=== PATIENT | female | born 1990 | race Caucasian/White ===

== ENCOUNTER 2023-11-17 02:48 | Inpatient (IN) | payer OTHER, SELFPAY ==
[2023-11-16 22:51] VITALS: BP 110/74
--- NOTE | 2023-11-16 23:29 | ED.GENMED ---
History of Present Illness
<BERNICE Johnson - Last Filed: 11/16/23 23:54>
General
Chief Complaint: Abdominal Symptoms
Source: patient and family
Exam Limitations: none
Time Seen by Provider: 11/16/23 23:14
Travel History
Have you had any contact with someone who has COVID-19?: No
Do you have any symptoms of coronavirus? Fever > 100 degrees, chills, cough, shortness of breath, sore throat, loss of taste or smell, muscle aches, or headache?: No
History of Present Illness
History of Present Illness:
32 year old female with no significant past medical hx who presents for 3 days of worsening diarrhea. Pt states she finished a 10 day course of Ceftin for a sinus infection 4 days ago. On that day, she had loose stools. The following day she
developed diarrhea which worsened the next day. 2 days ago she reports 11 episodes of diarrhea and yesterday she had 16 episodes. Stool is watery, fluffy, pink, with some bright red blood. She developed a fever of 100.8 today with chills. She has
some nausea, mild lower abdominal pain, an mild head ache. Denies vomiting. States she called her PCP yesterday who recommended BRAT diet and follow up on Friday. However, pt states diarrhea was severe and wanted to come in to the ER. Pt took a
probiotic today. Has not taken anything else for her symptoms. States she has been drinking lots of water. Denies cough, sore throat, chest pain, SOB, dysuria, hematuria. Denies recent travel or sick contacts. 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 No one at home with similar symptoms. Pt notes she was treated twice for sinus infection in the past, doxycycline in July and augmentin in May. Pt takes buspirone BID for anxiety. Pt began menses yesterday. Mother reports she
has a hx of IBS as a teenager. Also reports family hx of C. diff. Denies hx of IBD.
Review of Systems
<BERNICE Johnson - Last Filed: 11/16/23 23:54>
Review of Systems
Allergies reviewed?: Yes
All Other Systems: ROS reviewed and negative except as documented in HPI and ROS
Constitutional: Reports fever and chills
EENT: Reports no symptoms
Respiratory: Reports no symptoms
Cardiac: Reports no symptoms
ABD/GI: Reports nausea, diarrhea and bloody stools
: Reports no symptoms
Musculoskeletal: Reports no symptoms
Skin: Reports no symptoms
Neurological: Reports headache
Endocrine: Reports no symptoms
Hematologic/Lymphatic: Reports no symptoms
Psychiatric: Reports no symptoms
Phy Exam
<BERNICE Johnson - Last Filed: 11/16/23 23:54>
General Physical Exam
General Presentation: well appearing and no apparent distress
General age: appears stated age
General Skin: dry and feels hot
General Habitus: normal
General Mental: alert
General Hydration: appears well hydrated
Cardiovascular Exam
Cardiovascular Exam: no edema, no gallop, no murmur, normal peripheral pulses and tachycardia
Pulmonary Exam
Pulmonary Exam: lungs clear, no respiratory distress, no rales, no crackles, no rhonchi, no wheezing and no cough
Gastrointestinal Exam
Gastrointestinal Exam: normal bowel sounds, soft, no pulsatile mass and non distended
Palpation: left lower quadrant: Mild tenderness and right lower quadrant: Mild tenderness
Neurological Exam
Neurological Exam: alert and oriented x3
Skin Exam
Skin Exam: normal color and warm/dry
Psychiatric Exam
Psychiatric Exam: normal mood/affect
Course
<BERNICE Johnson - Last Filed: 11/16/23 23:54>
Orders/Labs/Results
Orders:
Orders
11/16/23 23:34
CDIFF [C difficile Antigen & Toxins] Urgent
KAYY Source: Feces/Stool
Specimen Description:
Date Specimen was Collected: 11/16/23
Time Specimen was Collected: 23:39
Stool Culture Urgent
KAYY Source: Feces/Stool
Specimen Description:
Date Specimen was Collected: 11/16/23
Time Specimen was Collected: 23:39
Test Result ONCE
11/16/23 23:37
CT Abd/pelvis W Iv Cont Urgent
Comment:
Reason For Exam: lower abd pain, bloody diarrhea x 3 days
0.9% Sodium Chloride 1000 ml [Nss] 1,000 ml IV BOLUS
11/16/23 23:48
Complete Blood Count/With Diff Urgent
Comprehensive Metabolic Panel Urgent
HCG, Serum Qualitative Screen Urgent
Lactic Acid Urgent
Abnormal Lab Results
11/16/23
23:48
Hgb 9.0 L g/dL
(12.0-16.0)
Hct 28.5 L %
(37.0-47.0)
MCV 67.2 L fL
(81.0-99.0)
MCH 21.2 L pg
(27.0-31.0)
MCHC 31.6 L g/dL
(33.0-37.0)
RDW 16.6 H %
(11.5-14.5)
Absolute Neuts (auto) 6.9 H 10^3/uL
(1.4-6.5)
Absolute Monos (auto) 0.7 H 10^3/uL
(0.1-0.6)
Lymphocytes % 17.4 L %
(20.5-51.1)
Potassium 3.4 L mmol/L
(3.5-5.1)
Creatinine 0.5 L mg/dL
(0.6-1.0)
11/16/23 23:48
11/16/23 23:48
Vital Signs
Initial and Last Documented VS:
Initial Vital Signs
Temp Pulse Resp BP Pulse Ox
99.4 F 108 22 110/74 100
11/16/23 22:51 11/16/23 22:51 11/16/23 22:51 11/16/23 22:51 11/16/23 22:51
Last Documented Vital Signs
Temp Pulse Resp BP Pulse Ox
99.4 F 108 22 110/74 100
11/16/23 22:51 11/16/23 22:51 11/16/23 22:51 11/16/23 22:51 11/16/23 22:51
<Taniya Sommers, DO - Last Filed: 11/17/23 02:07>
Orders/Labs/Results
Orders:
Orders
11/16/23 23:34
CDIFF [C difficile Antigen & Toxins] Urgent
KAYY Source: Feces/Stool
Specimen Description:
Date Specimen was Collected: 11/16/23
Time Specimen was Collected: 23:39
Stool Culture Urgent
KAYY Source: Feces/Stool
Specimen Description:
Date Specimen was Collected: 11/16/23
Time Specimen was Collected: 23:39
Test Result ONCE
11/16/23 23:37
CT Abd/pelvis W Iv Cont Urgent
Comment:
Reason For Exam: lower abd pain, bloody diarrhea x 3 days
0.9% Sodium Chloride 1000 ml [Nss] 1,000 ml IV BOLUS
11/16/23 23:48
Complete Blood Count/With Diff Urgent
Comprehensive Metabolic Panel Urgent
HCG, Serum Qualitative Screen Urgent
Lactic Acid Urgent
Abnormal Lab Results
11/16/23
23:48
Hgb 9.0 L g/dL
(12.0-16.0)
Hct 28.5 L %
(37.0-47.0)
MCV 67.2 L fL
(81.0-99.0)
MCH 21.2 L pg
(27.0-31.0)
MCHC 31.6 L g/dL
(33.0-37.0)
RDW 16.6 H %
(11.5-14.5)
Absolute Neuts (auto) 6.9 H 10^3/uL
(1.4-6.5)
Absolute Monos (auto) 0.7 H 10^3/uL
(0.1-0.6)
Lymphocytes % 17.4 L %
(20.5-51.1)
Potassium 3.4 L mmol/L
(3.5-5.1)
Creatinine 0.5 L mg/dL
(0.6-1.0)
11/16/23 23:48
11/16/23 23:48
Vital Signs
Initial and Last Documented VS:
Initial Vital Signs
Temp Pulse Resp BP Pulse Ox
99.4 F 108 22 110/74 100
11/16/23 22:51 11/16/23 22:51 11/16/23 22:51 11/16/23 22:51 11/16/23 22:51
Last Documented Vital Signs
Temp Pulse Resp BP Pulse Ox
99.4 F 108 22 110/74 100
11/16/23 22:51 11/16/23 22:51 11/16/23 22:51 11/16/23 22:51 11/16/23 22:51
<BERNICE Johnson - Last Filed: 11/16/23 23:54>
MDM/Problems Addressed
Differential Diagnosis Includes:
C. diff, viral/bacterial gastroenteritis, IBD, IBS
MDM/Problems Addressed:
32 year old female who presents with 2 days of worsening diarrhea.
Chronic conditions affecting care: Psychiatric illness (anxiety)
<BERNICE Johnson - Last Filed: 11/16/23 23:54>
*Critical Care Note
Total Time (30-74mins, 75-104mins- exclusive of procedures): Not Applicable
<Taniya Sommers DO - Last Filed: 11/17/23 02:07>
*Radiology
Radiology exam reviewed: radiology read reviewed (CAT scan shows moderate storm colonic wall thickening which may be due to acute pancolitis. Trace pelvic free fluid. No free air.)
*Pulse Oximetry
Patient hypoxic: no
ED Attending Note
<BERNICE Johnson - Last Filed: 11/16/23 23:54>
-
Portions of this chart may have been created with voice recognition software.� Occasional wrong word or��sound alike� substitutions may have occurred due to the inherent limitations of voice recognition software.
<Taniya Sommers DO - Last Filed: 11/17/23 02:07>
ED Attending Note
Patient seen and examined by attending physician: Yes
I performed the substantive portion of visit, reviewed & personally made and approve the management plan that is documented in note by myself or HOPE.: Yes
I performed a history and physical exam of patient and discussed management with resident, I reviewed resident's note and agree with documented findings and plan of care.: Yes
ED Attending Note:
This is a 32-year-old female who complains of 2-day history of significant watery yellowish diarrhea with occasional pink tinge and occasional blood streaking. She finished a 10-day course of Ceftin for sinus infection 4 days ago. She reports
passing perhaps 11 watery stools yesterday and 16 stools today with onset of low-grade fever this afternoon with intermittent chills and aches and generalized mild crampy lower abdominal pain.
No history of similar episodes in the past. No recent travel nor close contacts with similar symptoms.
No family history of inflammatory bowel disease.
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
Her menstrual period began today, normal and on time, denies risk of .
Her only daily medication is BuSpar for anxiety. She denies NSAID nor aspirin use.
GENERAL: 32-year-old woman appears younger than stated age, thin build, she is bright and alert, pleasant, appears in no acute distress.
EYE: anicteric
NECK: Supple, nontender, no meningismus, no significant adenopathy.
ENT: posterior pharynx is clear, oral mucosa is moist. No rhinorrhea.
CARDIAC: Regular rate and rhythm. no murmur.
LUNGS: Clear breath sounds bilaterally, no acute respiratory distress, no wheezes/rales/rhonchi
ABDOMEN: Soft, nondistended, mild tenderness left lower quadrant with deep palpation only, no r/g, no cvat. Mildly hyperactive bowel sounds.
Rectal exam reveals no stool per vault, no masses or hemorrhoids, heme-negative.
NEUROLOGICAL: Alert and oriented x3, no focal neuro deficits. Gait is steady.
SKIN: Warm and dry, normal color, skin intact. No rash.
MUSCULOSKELETAL: No C/C/E. peripheral pulses are full and equal b/l. No palpable tenderness.
PSYCH: Normal and appropriate interaction.
Concern for acute colitis either infectious versus inflammatory, concern for C. difficile colitis. With fever, concern for sepsis.
With history of significant diarrhea, concern for electrolyte abnormality, dehydration.
Will check labs, stool cultures, stool for C. difficile. Will initiate IV fluids and plan for CT abdomen pelvis with IV contrast.
11/17/2023 0206 AM
CAT scan shows moderate pancolonic wall thickening concerning for acute pancolitis.
Labs show mild anemia, microcytic indices with normal white blood cell count of 9.4. Mild hypokalemia with potassium of 3.4. Normal renal function. Normal lactic acid.
With normal white blood cell count, C. difficile is less likely but pancolitis accompanied with fever and bloody stools concerning for infectious colitis.
Will continue IV fluids, replete potassium with IV fluids, continue bowel rest and initiate IV antibiotics for coverage of infectious colitis and admit to hospitalist service.
Discharge Plan
Departure
Patient Disposition: Admit
Date of Disposition: 11/17/23
Time of Disposition: 01:59
Admit to doctor: Moises
Presentation/result/management discussed w/ accepting MD/DO: Hospitalist
Condition: Fair
Discharge Problem:
acute pancolitis, Hypochromic microcytic anemia
Referrals:
Patricio Fraga, [Family Provider] -
Interventions
Interventions:
*Risk Screen - Suicide Last Done: 11/16/23 22:51
*General Assessment Last Done: 11/16/23 23:57
*Neglect/Abuse Screening Last Done: 11/16/23 22:51
ED- Fall Risk Assessment Last Done: 11/17/23 00:24
FD-Gxhpfz-Kjvgqmgpny Assessment Last Done: 11/17/23 00:24
ED- Neurological Assessment Last Done: 11/17/23 00:24
ED-Skin Assessment Last Done: 11/17/23 00:24
Discharge Date and Time
Print Language: DANISH
[2023-11-16] MEDS: NSS 1000 IV (23:56)
[2023-11-16 23:57] VITALS: BMI 18.1
[2023-11-17 00:08] LABS: % Basophils 0.3 % (0-2); % Eosinophils 0.6 % (0-6); % Immature Granulocytes 0.2 % (0-0.5); % Lymphocytes 17.4 % (20.5-51.1); % Monocytes 7.6 % (1.7-9.3); % Neutrophils 73.9 % (42.2-75.2); Absolute Eosinophils 0.1 10^3/uL (0-0.7); Absolute Lymphocytes 1.6 10^3/uL (1.2-3.4); Absolute Monocytes 0.7 10^3/uL (0.1-0.6); Absolute Neutrophils 6.9 10^3/uL (1.4-6.5); Hematocrit 28.5 % (37.0-47.0); Mean Corp Hgb Conc. 31.6 g/dL (33.0-37.0); Mean Corpuscular Hgb 21.2 pg (27.0-31.0); Mean Corpuscular Volume 67.2 fL (81.0-99.0); Mean Platelet Volume 8.9 fL (7.4-10.4); Nucleated Red Blood Cells % 0 %; Platelet Count 342 10^3/uL (130-400); Red Blood Cell Count 4.24 10^6/uL (4.20-5.40); Red Cell Dist. Width 16.6 % (11.5-14.5); White Blood Cell Count 9.4 10^3/uL (4.8-10.8)
[2023-11-17 00:20] LABS: Lactic Acid 0.7 mmol/L (0.7-2.0)
[2023-11-17 00:23] LABS: HCG, Serum Qualitative Screen Negative
[2023-11-17 00:31] LABS: ALT (SGPT) 12 U/L (0-35); AST (SGOT) 22 U/L (14-36); Albumin 4.1 g/dl (3.5-5.0); Alkaline Phosphatase 77 U/L (38-126); Blood Urea Nitrogen 9 mg/dl (7-17); Calcium 9.1 mg/dl (8.4-10.2); Carbon Dioxide 22 mmol/L (22-30); Chloride 105 mmol/L (98-107); Estimated Creatinine Clearance 100 ml/min; Glucose 95 mg/dl (70-99); Potassium 3.4 mmol/L (3.5-5.1); Sodium 136 mmol/L (135-145); Total Bilirubin 0.3 mg/dl (0.2-1.3); Total Protein 7.2 g/dl (6.3-8.2); eGFR > 60.00
--- NOTE | 2023-11-17 01:00 | EDRN ---
Went over to Ct, as soon as we got there patient states she felt like she was going to have Diarrhea, patient brought back to room to use the restroom, sent sample and then back to CT
[2023-11-17] MEDS: OFIRMEV 100 IV (02:06)
[2023-11-17 02:08] VITALS: BP 122/74
--- NOTE | 2023-11-17 02:19 | HPS.HSE ---
Family Physician
-
Family Physician: Patricio Fraga
Chief Complaint
-
Abdominal cramps at lower abdomen
History of Present Illness
32 F No significant PMHx seen at ER for evaluation of diarrhea and abdominal cramps:
Abdominal cramps at lower abdomen
- acute onset of loose BMs since Friday
- 12 watery non bloody diarrhea last 24- 36 hrs
- POS Red streaks of blood
- NEG HoB stool at ER
- Hgb 9 and microcytic
- associated with low grade fever and Tachycardia but nl WCC
- No prior HX IBD
- Recently completed a course of Ceftin for sinusitis
- No vomiting
Denies cough, sore throat, chest pain, SOB, dysuria, hematuria. Denies recent travel
No significant contact exposures sick contacts.
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
No one at home with similar symptoms.
Medical History
Past Medical History
Past Medical History: Reports None
Past Surgical History: Reports None
Social History
Tobacco: Non-smoker
Alcohol: None
Drug: None
Family History
Family History: Not pertinent
Allergies / Home Medications
Allergies reflects when Allergies were last updated in [employer].
Home Medications with original date entered in [employer]
Allergy/Medication List:
Allergies
Allergy/AdvReac Type Severity Reaction Status Date / Time
citalopram [From Celexa] Allergy Unknown Verified 11/16/23 22:54
Home Medications
buspirone 5 mg tablet 2.5 mg PO 199911/17/23
buspirone 5 mg tablet 5 mg PO .102911/17/23
famotidine 20 mg tablet 20 mg PO BID 11/17/23
Review of Systems
-
Constitutional: Reports Fever
EENT: Reports No Symptoms
Respiratory: Reports No Symptoms
Cardiac: Reports No Symptoms
Abdomen/GI: Reports See HPI, Abdominal Pain, Nausea and Diarrhea; Denies Vomiting
: Reports No Symptoms
Musculoskeletal: Reports No Symptoms
Skin: Reports No Symptoms
Neurological: Reports No Symptoms
Endocrine: Reports No Symptoms
Hematologic/Lymphatic: Reports No Symptoms
Psych: Reports No Symptoms
Physical Exam
Vital Signs
Vital Signs
Temp Pulse Resp BP Pulse Ox
98.8 F 99 16 122/74 100
11/17/23 02:08 11/17/23 02:08 11/17/23 02:08 11/17/23 02:08 11/17/23 02:08
Physical Exam
General: No Apparent Distress and Conversant
HEENT: NormoCephalic and Anicteric
Respiratory: Clear
Cardiac: S1/S2 and Regular Rhythm
GI: Soft, Non Distended and Tender (Mild RLQ tnederness )
Rectal: Hem Negative (by ER atttd LISSY )
Genito-urinary: Deferred by me
Musculoskeletal: No Edema
Skin: Warm and Dry
Neuro: AO x 3
Psych: Calm
Laboratory Results
-
11/16/23 23:48
11/16/23 23:48
Laboratory Results
Lactic Acid 0.7 mmol/L (0.7-2.0) 11/16/23 23:48
Total Bilirubin 0.3 mg/dl (0.2-1.3) 11/16/23 23:48
AST 22 U/L (14-36) 11/16/23 23:48
ALT 12 U/L (0-35) 11/16/23 23:48
Alkaline Phosphatase 77 U/L (38-126) 11/16/23 23:48
Data Reviewed
-
CT Scan: Report Reviewed by me
Lab Data: Labs Reviewed by me
Impression/Plan
-
Reviewed VS: T 99.4 HR 108 BP 117/75 RR22
Data
nl WCC
Hgb 9 MCV 67
K 3.4
LA 0.7
Pending stool C Diff
Stool Cx sent
NEG HCG
CT AP with IV contrast
moderate storm colonic wall thickening which may be due to acute pancolitis. Trace pelvic free fluid. No free air
No prior DH or hospitalist admission:
ASSESSMENT & PLAN
Acute pancolitis with non bloody watery diarrhea with early sepsis ? ( HR > 90, low grade fever)
At risk for ABx associated diarrhea vs CDAD vs acute infectious
Asso. with low grade fever but nl WCC
No FHx and no prior HX of IBD
NEG HoB
- stool for C Diff and cx
- Clear and IVF
- probiotics
- agree with IV LVQ and Flagyl
- trend T curve and BMs
- GI consult
Hypokalemia due to diarrhea loss
- IV KCL [place]
Microcytic anemia
NEG HoB stool
Beginning of menses
- check ferritin
- trend Hgb
DVT Px: SCD
Code: Full
IP MS
[2023-11-17] MEDS: LEVAQUIN 100 IV (02:20)
[2023-11-17] MEDS: NSS with KCL 20 MEQ 1000 IV (02:20)
[2023-11-17] MEDS: FLAGYL 500 MG 100 IV (04:02)
--- NOTE | 2023-11-17 04:21 | EDRN ---
Patient had ambulated into restroom to urinate and back out, complaining IV is bothering her, flushed several times with blood return, reports still feels weird, informed her we can move sight. Will do morning labs with new IV insertion, left to get
labels and patient back in the restroom again.
[2023-11-17 04:37] LABS: Hematocrit 31.2 % (37.0-47.0); Hemoglobin 9.3 g/dL (12.0-16.0); Mean Corp Hgb Conc. 29.8 g/dL (33.0-37.0); Mean Corpuscular Hgb 20.9 pg (27.0-31.0); Mean Corpuscular Volume 70.3 fL (81.0-99.0); Mean Platelet Volume 8.9 fL (7.4-10.4); Platelet Count 344 10^3/uL (130-400); Red Blood Cell Count 4.44 10^6/uL (4.20-5.40); Red Cell Dist. Width 16.6 % (11.5-14.5); White Blood Cell Count 8.2 10^3/uL (4.8-10.8)
[2023-11-17 04:45] VITALS: BMI 18.4
--- NOTE | 2023-11-17 04:53 | PTCARENOTE ---
Received pt from ED via stretcher. Pt able to ambulate into room without assistance. AAOx3. No wounds noted. 1x BM on arrival to unit; pt continent of bowel and bladder. Pt noted to be anxious about being in the hospital. Oriented to room.
Resting in bed with call petersen in reach.
[2023-11-17 05:04] LABS: Blood Urea Nitrogen 6 mg/dl (7-17); Calcium 8.5 mg/dl (8.4-10.2); Carbon Dioxide 21 mmol/L (22-30); Chloride 110 mmol/L (98-107); Estimated Creatinine Clearance 104 ml/min; Glucose 97 mg/dl (70-99); Magnesium 1.9 mg/dl (1.6-2.3); Sodium 139 mmol/L (135-145); eGFR > 60.00
[2023-11-17 05:14] VITALS: BP 107/61
[2023-11-17 05:37] LABS: Ferritin 4.2 ng/ml (6.24-137)
--- NOTE | 2023-11-17 06:38 | W.PN.HOSP.TC ---
Today's Communication/Plan
-
.
Assessment / Plan
Assessment / Plan
Physical Exam
General: No Apparent Distress
HEENT: NormoCephalic, Anicteric and Moist mucous membranes
Respiratory: Clear
Cardiac: S1/S2 and Regular Rhythm
GI: Soft, Non Distended and non Tender
: No hematuria
Musculoskeletal: No Clubbing, No Cyanosis and No Edema
Neuro: Awake, Alert and Oriented
Psych: Calm
32 F No significant PMHx seen at ER for evaluation of diarrhea and abdominal cramps:
# Acute gastroenteritis, likely infectious
No pain or discomfort
Stool liquid/ food particles but non bloody this morning
No abd tenderness on exam
No leukocytosis
No fevers this morning
c/w supportive care
Scan of the abdomen and pelvis showed diffuse uncomplicated pancolitis.
No significant contact exposures sick contacts.
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
No one at home with similar symptoms.
Appreciate GI input
# Hypokalemia, resolved
# GERD, continue with Protonix, as needed Pepcid
Total time spent to see the patient, examine the patient on the floor, review data and lab results, discuss treatment plan with patient, familf, nursing staff around 55 minutes
Anticipated Discharge: 24 - 48 hours
Subjective/Interval History
-
Date of Service: November 17, 2023
Objective Data
-
Labs:
Laboratory Results
11/16/23 11/17/23
23:48 04:21
WBC 9.4 8.2
Hgb 9.0 L 9.3 L
Hct 28.5 L 31.2 L
Plt Count 342 344
Sodium 136 139
Potassium 3.4 L 4.0
Chloride 105 110 H
Carbon Dioxide 22 21 L
BUN 9 6 L
Creatinine 0.5 L 0.5 L
Glucose 95 97
Calcium 9.1 8.5
Total Bilirubin 0.3
AST 22
ALT 12
Alkaline Phosphatase 77
Vital Signs:
Vital Signs
Temp Pulse Resp BP Pulse Ox
98.3 F 100 20 107/61 100
11/17/23 05:14 11/17/23 05:14 11/17/23 05:14 11/17/23 05:14 11/17/23 05:14
[2023-11-17 07:51] VITALS: BP 104/66
[2023-11-17] MEDS: NSS 1000 IV ×2 (08:12→16:15)
[2023-11-17] MEDS: NSS (PRESERVATIVE FREE) 10 ML IV (08:16)
[2023-11-17] MEDS: PROTONIX IV 40 MG IV (08:16)
--- NOTE | 2023-11-17 09:42 | CON.GI ---
Consultation
-
Date/Time Consultation Requested: 11/17/23
Date/Time Consultation Performed: 11/17/23
Requesting Provider: Dr Nava
Performing Provider: Dr Sarabia
Reason for Consultation: diarrhea
Medical History
Chief Complaint / HPI
Chief Complaint: diarrhea
History of Present Illness:
Danelle is a 32yo W with no past medical history who presents with profuse nonbloody diarrhea that started on Friday/Fri. Prior to admission she had just completed a 10 day course of ceftin for sinusitis. 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 She has never had Cdiff colitis in the past. She denies FH of Crohn's, UC or colon cancer. She does have fecal urgency and tenesmus. She at times sees some blood streaked stool. She has 4yo son at home and eager to see him.
Past Medical History
Past Medical History: Other (anxiety, GERD)
Past Surgical History: None
Social History
Tobacco: Non-Smoker
Alcohol: Occasional
Drug: None
Living: With Family
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
Family History
Family History: Other (No IBD or CRC. PGM with celiac)
Allergies / Home Medications
Allergy/AdvReac Type Severity Reaction Status Date / Time
citalopram [From Celexa] Allergy Unknown Verified 11/16/23 22:54
�Medication �Instructions �Recorded
buspirone 5 mg tablet 2.5 mg PO 1999 anxiety 11/17/23
buspirone 5 mg tablet 5 mg PO .103 anxiety 11/17/23
famotidine 20 mg tablet 20 mg PO BID Gastrointestinal Issue 11/17/23
Review of Systems
-
All other systems: A 12 pt ROS was Negative except as stated above in HPI
Vital Signs
Temp Pulse Resp BP Pulse Ox
98.1 F 78 16 104/66 98
11/17/23 07:51 11/17/23 07:51 11/17/23 07:51 11/17/23 07:51 11/17/23 08:27
Physical Exam
Exam
GEN: No acute distress, conversant, pleasant
HEENT: anicteric, extraocular movements intact, clear oropharynx without exudates
GI: soft, mildly-distended, not tender to palpation, normal active bowel sounds, no hepatosplenomegaly
EXT: warm, well perfused, no edema bilaterally
NEURO: AAOx3, non-focal
Results
WBC 8.2 10^3/uL (4.8-10.8) 11/17/23 04:21
Hgb 9.3 g/dL (12.0-16.0) L 11/17/23 04:21
Hct 31.2 % (37.0-47.0) L 11/17/23 04:21
MCV 70.3 fL (81.0-99.0) L 11/17/23 04:21
Plt Count 344 10^3/uL (130-400) 11/17/23 04:21
Absolute Neuts (auto) 6.9 10^3/uL (1.4-6.5) H 11/16/23 23:48
Sodium 139 mmol/L (135-145) 11/17/23 04:21
Potassium 4.0 mmol/L (3.5-5.1) 11/17/23 04:21
Chloride 110 mmol/L (98-107) H 11/17/23 04:21
Carbon Dioxide 21 mmol/L (22-30) L 11/17/23 04:21
BUN 6 mg/dl (7-17) L 11/17/23 04:21
Creatinine 0.5 mg/dL (0.6-1.0) L 11/17/23 04:21
Calcium 8.5 mg/dl (8.4-10.2) 11/17/23 04:21
Total Bilirubin 0.3 mg/dl (0.2-1.3) 11/16/23 23:48
AST 22 U/L (14-36) 11/16/23 23:48
ALT 12 U/L (0-35) 11/16/23 23:48
Alkaline Phosphatase 77 U/L (38-126) 11/16/23 23:48
Diagnostic Image Results:
CTAP 1. Diffuse uncomplicated pancolitis, likely of infectious/inflammatory etiology.
Prior GI Procedures:
EGD: none
Colonoscopy: none
Assessment / Plan
-
Danelle is a 32yo W with little past medical history who presents with profuse diarrhea up to 12x/day that started 2 days [employer]. She had just completed 10d course of ceftin for sinus infection on Friday. While she is Cdiff toxin negative her
antigen is + and in clinical situation suspicious for Cdiff colitis. CTAP shows pancolitis. No prior Cscope. No FH of IBD
Impression
- Pancolitis with profuse nonbloody diarrhea
Suspect Cdiff colitis given recent abx completed 2 days prior to symptoms
- Microcytic anemia
Await iron panel
- GERD
- Anxiety
Recommendations
- Start oral vancomycin 125mg Q6H
- Monitor stool output
- CLD
- IVF
- Stop levaquin and flagyl
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
- If does not improve may need flex sigm with bx
- Add on vit B12 and folate
Mother and RN updated at bedside. Will follow with you
Data Reviewed
-
CT Scan: Report Reviewed by me
-
-
Thank you for consultation and allowing me to participate in the patient's care. Please call the [facility] GI physician during the after hours with any questions or concerns.
[2023-11-17 10:17] LABS: Iron 26 ug/dl (37-170)
--- NOTE | 2023-11-17 10:18 | PTCARENOTE ---
Patient stating that she continues to have diarrhea. Cdiff specimen positive for antigen. Oral vanco to be started. Patient educated about plan of care and infection control. Clear liquid diet tolerated for breakfast.
[2023-11-17] MEDS: FIRVANQ 125 MG PO ×3 (10:47→22:02)
[2023-11-17] MEDS: BUSPAR 5 MG PO (10:48)
[2023-11-17] MEDS: FIRVANQ PO (12:51)
--- NOTE | 2023-11-17 14:20 | PTCARENOTE ---
Received pt from IMU, pt ambulated without assistance to the bed, VSS, pt resting comfortably in bed at this time.
[2023-11-17 14:29] VITALS: BMI 18.4
[2023-11-17 14:30] VITALS: BP 124/59
[2023-11-17 15:22] VITALS: BMI 18.4
[2023-11-17] MEDS: TYLENOL 650 MG PO (16:07)
[2023-11-17] MEDS: BUSPAR 2.5 MG PO (20:30)
[2023-11-17 23:19] VITALS: BP 108/70
[2023-11-18] MEDS: NSS 1000 IV (01:02)
[2023-11-18] MEDS: FIRVANQ 125 MG PO ×2 (03:53→09:38)
[2023-11-18 07:24] LABS: Hemoglobin 7.9 g/dL (12.0-16.0); Mean Corp Hgb Conc. 29.3 g/dL (33.0-37.0); Mean Corpuscular Volume 71.6 fL (81.0-99.0); Mean Platelet Volume 9.3 fL (7.4-10.4); Platelet Count 283 10^3/uL (130-400); Red Blood Cell Count 3.77 10^6/uL (4.20-5.40); Red Cell Dist. Width 16.9 % (11.5-14.5)
[2023-11-18 07:41] LABS: ALT (SGPT) < 10 U/L (0-35); AST (SGOT) 17 U/L (14-36); Alkaline Phosphatase 52 U/L (38-126); Blood Urea Nitrogen 3 mg/dl (7-17); Calcium 7.8 mg/dl (8.4-10.2); Carbon Dioxide 23 mmol/L (22-30); Chloride 112 mmol/L (98-107); Estimated Creatinine Clearance 102 ml/min; Glucose 84 mg/dl (70-99); Potassium 3.5 mmol/L (3.5-5.1); Sodium 141 mmol/L (135-145); Total Bilirubin 0.2 mg/dl (0.2-1.3); Total Protein 5.8 g/dl (6.3-8.2); eGFR > 60.00
[2023-11-18 08:00] VITALS: BP 108/73
[2023-11-18] MEDS: FEOSOL 325 MG PO (09:36)
[2023-11-18] MEDS: VISBIOME 1 CAP PO (09:36)
[2023-11-18] MEDS: BUSPAR 5 MG PO (09:36)
--- NOTE | 2023-11-18 09:40 | W.DCSUMMARY ---
Discharge Summary
Discharge Data
Date of Admission: 11/17/23
Date of Discharge: 11/18/23
-
Pending Results: No
Hospital Course
� 33 years old female presented with diarrhea and abdominal cramps. She had history of recent antibiotic use for acute sinusitis. Scan of the abdomen pelvis showed signs of infectious pancolitis. Stool test came back positive for Clostridia
difficile ( C.Diff) antigen but toxin was negative. Clinical picture was consistent with colitis. She was treated with oral vancomycin with good response. She reported history of other family members positive for C. difficile colitis in the past.
Patient did not have fever or leukocytosis in the hospital. She remained hemodynamically stable. Her diarrhea frequency decreased with the use of oral vancomycin. Patient was counseled regarding her illness. Patient was found to have iron
deficiency anemia. She reported history of uterine fibroid and heavy menses. She had her menstrual period during hospitalization also. Her hemoglobin was 9 and dropped to 7.9/8. She was started on oral iron therapy for iron deficiency
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 Patient and her mother verbalized understanding to our recommendation and discharge instructions. Patient was also followed by
commercial real estate associate. Patient was discharged home in a stable condition.
Physical Exam
General: No Apparent Distress
HEENT: Normocephalic, Anicteric and Moist mucous membranes
Respiratory: Clear
Cardiac: S1/S2 and Regular Rhythm
GI: Soft, Non Distended and non Tender
: No hematuria
Musculoskeletal: No Clubbing, No Cyanosis and No Edema
Neuro: Awake, Alert and Oriented
Psych: Calm
Total discharge time spent to see the patient, examine the patient on the floor, review data and lab results, discuss discharge plan with patient, her mother, GI doctor, nursing staff around 65 minutes
Discharge Plan
-
Patient Disposition: Home (Routine Discharge)
Discharge Diagnosis/Procedures: Clostridia Difficile colitis, finish course of oral vancomycin.
Iron deficiency anemia with mild acute blood loss anemia. Take oral iron and follow with your primary care doctor.
Diet: As tolerated and Low Residue
Additional Diets: advance as tolerated
Activity: No restrictions
Driving Restrictions: As prior to admission
Referrals:
Patricio Fraga, DO [Family Provider] - in one to two weeks
Prescriptions:
New
vancomycin 125 mg capsule
125 mg PO QID Qty: 28 0RF
Probiotic 3 billion cell capsule
3,000 mmu cells PO DAILY Qty: 7 0RF
ferrous sulfate [FeroSul] 325 mg (65 mg iron) Tablet
325 mg PO DAILY Qty: 30 0RF
Continued
buspirone 5 mg Tablet
5 mg PO .1030
buspirone 5 mg Tablet
2.5 mg PO 2000
famotidine 20 mg Tablet
20 mg PO BID
Rx Instructions:
hasn't been on for a few wks bc of antibiotics
Discharge Orders:
Discharge Patient (As Directed); Ordered 11/18/23
Ordered By: Paz Nava
Discharge Date and Time
Print Language: TELUGU
--- NOTE | 2023-11-18 10:50 | W.PN.GI.CBS2 ---
Today's Communication / Plan
-
adv diet to LRD
Ok to DC home if tolerates diet and diarrhea improved
Assessment / Plan
-
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 She had just completed 10d course of ceftin for sinus infection on Friday. While she is Cdiff toxin negative her
antigen is + and in clinical situation suspicious for Cdiff colitis. CTAP shows pancolitis. No prior Cscope. No FH of IBD
Impression
- Pancolitis with profuse nonbloody diarrhea - likely infectious etiology
- DONNIE
- GERD
- Anxiety
Recommendations
-Started oral vancomycin 125mg Q6H 11/16. C. difficile antigen positive but toxin negative but given marked improvement of symptoms and recent use of antibiotics complete treatment for 10 days.
-Stool cultures are currently pending, for now hold other antibiotics since symptoms have improved. cannot rule out viral gastroenteritis
-Doubt IBD given acute onset of symptoms and marked improvement on oral vancomycin and IV fluids
-Continue probiotics
-Advance diet to low residue diet
-Iron deficiency anemia most likely related to known history of menorrhagia and drop in hemoglobin could be dilutional from IV fluids
-Discussed with Dr. Nava she is going to be started on oral iron and told to follow-up with her LIDAR SCIENTIST, I also told her to follow-up with her outpatient GI she did have an endoscopy about 6 months ago with a theater set production designer for GERD
-Continue famotidine
-
Subjective
Subjective
Date of Service: November 18, 2023
Diarrhea is improving, tolerating clear liquids, no nausea or vomiting currently, denies any abdominal pain. she says that her stool today was darker appearing, she also started to have her period with vaginal bleeding. Her hemoglobin did drop she
does have a history of menorrhagia
Objective
Data Reviewed
Laboratory Data:
Laboratory Results
05/28/24 06:27
11/18/23 06:27
Laboratory Results
Magnesium 1.9 mg/dl (1.6-2.3) 11/17/23 04:21
Total Bilirubin 0.2 mg/dl (0.2-1.3) 11/18/23 06:27
AST 17 U/L (14-36) 11/18/23 06:27
ALT < 10 U/L (0-35) 11/18/23 06:27
Alkaline Phosphatase 52 U/L (38-126) 11/18/23 06:27
Vital Signs and I&O:
Vital Signs
Temp Pulse Resp BP Pulse Ox
97.9 F 82 16 108/73 100
11/18/23 08:00 11/18/23 08:00 11/18/23 08:00 11/18/23 08:00 11/18/23 08:00
I&O
11/17/23 11/18/23 11/19/23
06:59 06:59 06:59
Intake Total 3020 / 3020
Balance 3020 / 3020
Physical Exam
Physical Exam
Cardiology: Normal Sinus Rhythm
Pulmonary: Clear
GI: Soft, Non Distended, Non Tender and Normal Bowel Sounds
[2023-11-18 14:05] VITALS: BP 108/68
--- NOTE | 2023-11-18 15:20 | CM ---
Patient is independent in ADL's, drives, lives with , no DME or in-home services. Has been medically cleared for discharge to home with no additional skilled services. transport home.
== END 2023-11-18 14:13 | disposition home or self-care (01) | DRG 372 ==
LOC: 2 NORTH 02:48
PROVIDERS: ADMITTING PHYSICIAN Internal Medicine; ATTENDING PHYSICIAN Internal Medicine; CONSULT PHYSICIAN Internal Medicine Gastroenterology; EMERGENCY PHYSICIAN Emergency Medicine; FAMILY PHYSICIAN Family Medicine
DX: A04.72 Enterocolitis due to Clostridium difficile, not specified as recurrent (principal); D62 Acute posthemorrhagic anemia; F41.9 Anxiety disorder, unspecified; D50.9 Iron deficiency anemia, unspecified; E87.6 Hypokalemia; K21.9 Gastro-esophageal reflux disease without esophagitis; R15.2 Fecal urgency; D25.9 Leiomyoma of uterus, unspecified; N92.0 Excessive and frequent menstruation with regular cycle
CPT/HCPCS: 74177; 80048; 80053; 82728; 83540; 83605; 83735; 84703; 85025; 85027; 87045; 87046; 87324; 87427; 87449; 93005; 96361; 96365; 96375; 99285; Q9967

== ENCOUNTER → 2024-02-17 11:04 | Outpatient (REF) | payer OTHER, SELFPAY | LOC: HWRAD 11:04 | PROVIDERS: ATTENDING PHYSICIAN Nurse Practitioner Obstetrics & Gynecology; FAMILY PHYSICIAN Family Medicine | DX: N92.0 Excessive and frequent menstruation with regular cycle (principal) | CPT/HCPCS: 76830; 76856 ==